=== PATIENT | female | born 2000 | race Caucasian/White ===

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

== ENCOUNTER 2022-03-11 01:38 | Emergency (ER) | payer OTHER, MEDICAID ==
[~2022-03-11] VITALS: Ht 160 cm; Wt 72.6 kg
[2022-03-11 01:51] VITALS: BP 114/73
[2022-03-11] MEDS ORDERED: cefTRIAXone SOD 1,000 MG VL IM ONE (06:45)
[2022-03-11] MEDS ORDERED: AZIT250T8 PO (06:46)
[2022-03-11] MEDS ORDERED: LIDO2SOL23 MT (06:46)
== END 2022-03-11 06:54 | disposition home or self-care (01) ==
LOC: ER 01:38
DX: J03.90 Acute tonsillitis, unspecified (principal)
CPT/HCPCS: 96372; 99283; J0696